=== PATIENT | male | born 1965 | race Caucasian/White ===

== ENCOUNTER 2019-03-19 22:54 | Emergency (ER) | payer OTHER ==
--- OUTSIDE RECORDS SUMMARY | 2019-03-19 22:55 | XMS REPORT | Clinical Summary ---
:1965 Author Organization [facility] Address [address] [place] [address] Care Team Providers Name Role Phone Asked, No Pcp Primary Care Provider Unavailable Allergies Active Allergy Reactions Severity Noted Date Comments Penicillins Rash Low 08/10/2017 Medications Medication Sig Dispensed Refills Start Date End Date Status diphenhydrAMINE Take 25 mg by 0 Active (BENADRYL) 25 mg tablet mouth nightly as needed for sleep. Active Problems Not on file Social History Tobacco Use Types Packs/Day Years Used Date Never Smoker Smokeless Tobacco: Never Used Alcohol Use Drinks/Week oz/Week Comments No Sex Assigned at Date Recorded Not on file Job Start Date Occupation Industry Not on file Not on file Not on file Travel History Travel Start Travel End No recent travel history available. Last Filed Vital Signs Not on file Plan of Treatment Health Maintenance Due Date Last Done Comments COLONOSCOPY SCREENING 2014 SHINGLES VACCINES (#1) 2014 INFLUENZA VACCINE 03/09/2019 Results Not on fileafter 03/18/2018 (Work) Advance Directives Patient has advance care planning documents on file. For more information, please contact:[address] [address]
[2019-03-20 00:08] LABS: Absolute Lymphocytes (CBC) 1.3 K/uL (0.7-4.9); Basophils % 0.9 % (0-1.3); Hematocrit 42.7 % (39.6-49.0); Lymphocytes % 20.7 % (15.3-44.8); RBC Red Blood Cell Count 4.83 M/uL (4.33-5.43)
[2019-03-20 00:11] LABS: Protime INR 1.03
[2019-03-20 00:25] LABS: ALT/SGPT 29 U/L (12-78); AST/SGOT 22 U/L (15-37); Alkaline Phosphatase 82 U/L (45-117); BUN Blood Urea Nitrogen 16 mg/dL (7-18); Bicarbonate 27 mmol/L (21-32); Bilirubin Direct < 0.1 mg/dL (0-0.2); Bilirubin Total 0.3 mg/dL (0.2-1.0); Glucose Level 101 mg/dL (74-106); Magnesium 2.1 mg/dL (1.8-2.4); NT PRO-BNP 26 pg/mL (<125); Potassium 3.7 mmol/L (3.5-5.1); Protein, Total 6.9 g/dL (6.4-8.2); Sodium Level 144 mmol/L (136-145); Troponin (Emerg Dept Use Only) < 0.02 ng/mL (0.0-0.045)
[2019-03-20] MEDS ORDERED: MORPHINE 4 MG/ML SYR ONE (00:25)
[2019-03-20] MEDS ORDERED: ONDANSETRON 4 MG/2 ML VIAL ONE (00:25)
--- NOTE | 2019-03-20 01:35 | EDPHYS ---
Physician Documentation [facility] Name: Radha Philip Age: 53 yrs Sex: Male : 1965 Arrival Date: 03/19/2019 Time: 22:58 Bed 27 Private MD: ED Physician Aydin Marie HPI: 03/19 23:48 This 53 yrs old Male presents to ER via Ambulatory with complaints of Right pm1 Arm Pain, High Blood Pressure. 23:48 The patient or guardian complains of pain, right arm and hypertension. Context: The pm1 problem was sustained at home, resulted from unknown cause. Onset: The symptoms/episode began/occurred this morning. Treatment prior to arrival includes: no previous treatment. Modifying factors: The symptoms are alleviated by nothing. the symptoms are aggravated by nothing. Associated signs and symptoms: Pertinent negatives: decreased range of motion, deformity, fever, numbness, swelling, tingling. Severity of symptoms: in the emergency department the symptoms are unchanged. The patient has not experienced similar symptoms in the past. The patient has been recently seen by a physician: the patient's primary care provider, Seen by PCP last week and started on blood pressure medications, lisinopril 10mg PO daily. Patient took his first dose of blood pressure medication today. Patient presenting here today with complaint of right arm pain that started this AM with elevated blood pressure. Historical: - Allergies: 23:15 PENICILLINS; cc3 - Home Meds: 23:15 escitalopram oxalate 10 mg oral tab 1 tab once daily [Active]; lisinopril 10 mg Oral cc3 tab 1 tab once daily [Active]; quetiapine 100 mg oral tab [Active]; - PMHx: 23:15 Hypertension; Depression; PTSD; cc3 - PSHx: 23:15 rigth ACL replacements; metal to left ankle; cervical fusion; Vasectomy; cc3 - Immunization history:: Adult Immunizations up to date. - Social history:: Smoking status: Patient/guardian denies using tobacco, but has a distant history of tobacco abuse, Patient uses chew nicotine. - Ebola Screening: : No symptoms or risks identified at this time. ROS: 23:48 Constitutional: Negative for fever, chills, and weight loss, Eyes: Negative for injury, pm1 pain, redness, and discharge, ENT: Negative for injury, pain, and discharge, Neck: Negative for injury, pain, and swelling, Cardiovascular: Negative for chest pain, palpitations, and edema, Respiratory: Negative for shortness of breath, cough, wheezing, and pleuritic chest pain, Abdomen/GI: Negative for abdominal pain, nausea, vomiting, diarrhea, and constipation, Back: Negative for injury and pain, : Negative for injury, bleeding, discharge, and swelling. 23:48 Skin: Negative for injury, rash, and discoloration, Neuro: Negative for headache, weakness, numbness, tingling, and seizure. 23:48 MS/extremity: Positive for pain, of the right arm, Negative for decreased range of motion, deformity. 23:48 Psych: Positive for anxiety. Exam: 23:48 Constitutional: This is a well developed, well nourished patient who is awake, alert, pm1 and in no acute distress. Head/Face: Normocephalic, atraumatic. Eyes: Pupils equal round and reactive to light, extra-ocular motions intact. Lids and lashes normal. Conjunctiva and sclera are non-icteric and not injected. Cornea within normal limits. Periorbital areas with no swelling, redness, or edema. ENT: Nares patent. No nasal discharge, no septal abnormalities noted. Tympanic membranes are normal and external auditory canals are clear. Oropharynx with no redness, swelling, or masses, exudates, or evidence of obstruction, uvula midline. Mucous membranes moist. Neck: Trachea midline, no thyromegaly or masses palpated, and no cervical lymphadenopathy. Supple, full range of motion without nuchal rigidity, or vertebral point tenderness. No Meningismus. Chest/axilla: Normal chest wall appearance and motion. Nontender with no deformity. No lesions are appreciated. Cardiovascular: Regular rate and rhythm with a normal S1 and S2. No gallops, murmurs, or rubs. Normal PMI, no JVD. No pulse deficits. Respiratory: Lungs have equal breath sounds bilaterally, clear to auscultation and percussion. No rales, rhonchi or wheezes noted. No increased work of breathing, no retractions or nasal flaring. Abdomen/GI: Soft, non-tender, with normal bowel sounds. No distension or tympany. No guarding or rebound. No evidence of tenderness throughout. Back: No spinal tenderness. No costovertebral tenderness. Full range of motion. Skin: Warm, dry with normal turgor. Normal color with no rashes, no lesions, and no evidence of cellulitis. MS/ Extremity: Pulses equal, no cyanosis. Neurovascular intact. Full, normal range of motion. 23:48 Neuro: Orientation: is normal, Motor: is normal, Sensation: is normal, no obvious gross deficits, Gait: is steady, at a normal pace, without difficulty. 23:48 Psych: Behavior/mood is pleasant, cooperative, anxious, Affect is animated. Vital Signs: 23:15 BP 174 / 109; Pulse 72; Resp 18 S; Temp 99.2(O); Pulse Ox 96% on R/A; Weight 76.66 kg cc3 (R); Height 5 ft. 9 in. (175.26 cm) (R); Pain 7/10; 23:29 BP 160 / 92; Pulse 73; Resp 17; Pulse Ox 96% on R/A; 3 03/20 00:16 BP 125 / 62; Pulse 62; Resp 16 S; Pulse Ox 97% on R/A; cc3 00:30 BP 150 / 88; Pulse 64; Resp 16 S; Pulse Ox 96% on R/A; cc3 01:00 BP 141 / 81 RA; Pulse 56; Resp 16 S; Pulse Ox 96% on R/A; cc3 01:15 BP 125 / 81 LA; Pulse 56; Resp 17 S; Pulse Ox 97% on R/A; cc3 03/19 23:15 Body Mass Index 24.96 (76.66 kg, 175.26 cm) [facility] MDM: 03/19 23:21 Patient medically screened. pm1 03/20 01:30 ED course: bilateral blood pressure readings 148/111 right arm and 148/111 left arm. pm1 01:32 Data reviewed: vital signs. Data interpreted: Pulse oximetry: on room air is 96 %. pm1 Interpretation: normal. Counseling: I had a detailed discussion with the patient and/or guardian regarding: the historical points, exam findings, and any diagnostic results supporting the discharge/admit diagnosis, lab results, radiology results, the need for outpatient follow up, to return to the emergency department if symptoms worsen or persist or if there are any questions or concerns that arise at home. 08/11 23:21 Order name: Basic Metabolic Panel; Complete Time: 01:13 pm03/19 23:21 Order name: CBC with Diff; Complete Time: 00:26 pm1 03/19 23:21 Order name: LFT's; Complete Time: 01:13 pm03/19 23:21 Order name: Magnesium; Complete Time: 01:13 pm1 03/19 23:21 Order name: NT PRO-BNP; Complete Time: 01:13 pm03/19 23:21 Order name: PT-INR 03/19 23:21 Order name: Troponin (emerg Dept Use Only); Complete Time: 01:13 pm1 03/19 23:21 Order name: XRAY Chest (1 view) pm03/19 23:21 Order name: EKG; Complete Time: 23:23 pm03/19 23:21 Order name: Cardiac monitoring; Complete Time: 23:41 pm03/19 23:21 Order name: EKG - Nurse/Tech; Complete Time: 23:41 pm03/19 23:21 Order name: IV Saline Lock; Complete Time: 00:18 pm03/19 23:21 Order name: Labs collected and sent; Complete Time: 00:18 pm1 03/19 23:21 Order name: O2 Per Protocol; Complete Time: 23:41 pm03/19 23:21 Order name: O2 Sat Monitoring; Complete Time: 23:41 pm1 Administered Medications: 00:25 Drug: morphine 4 mg {Note: RASS 0.} Route: IVP; Site: right antecubital; cc3 01:00 Follow up: Response: No adverse reaction; Pain is decreased; RASS: Alert and Calm (0) cc3 00:30 Drug: Zofran 4 mg Route: IVP; Site: right antecubital; cc3 01:00 Follow up: Response: No adverse reaction; Nausea is decreased cc3 Disposition: 03/20/19 01:34 Discharged to Home. Impression: Essential (primary) hypertension. - Condition is Stable. - Discharge Instructions: Hypertension, How to Take Your Blood Pressure, [id number], DASH Eating Plan, Managing Your Hypertension. - Medication Reconciliation Form, Thank You Letter, Antibiotic Education, Prescription Opioid Use form. - Follow up: Emergency Department; When: As needed; Reason: Worsening of condition. Follow up: Private Physician; When: 2 - 3 days; Reason: Recheck today's complaints, Continuance of care, Re-evaluation by your physician. - Problem is new. - Symptoms have improved. Addendum: 03/22/2019 19:09 Co-signature as Attending Physician, Aydin Marie MD. g s Signatures: Dispatcher [employer] EDMS Usman Estrada, JACQUARD CARD LACER JACQUARD CARD LACER pm1 Aydin Marie MD MD gs Cordel, Charlene cc3 Corrections: (The following items were deleted from the chart) 03/20 02:00 01:34 03/20/2019 01:34 Discharged to Home. Impression: Essential (primary) cc3 hypertension. Condition is Stable. Forms are Medication Reconciliation Form, Thank You Letter, Antibiotic Education, Prescription Opioid Use. Follow up: Emergency Department; When: As needed; Reason: Worsening of condition. Follow up: Private Physician; When: 2 - 3 days; Reason: Recheck today's complaints, Continuance of care, Re-evaluation by your physician. Problem is new. Symptoms have improved. pm1
--- NOTE | 2019-03-20 01:35 | ER ---
Nurse's Notes [facility] Name: Radha Philip Age: 53 yrs Sex: Male : 1965 Arrival Date: 03/19/2019 Time: 22:58 Bed 27 Private MD: Diagnosis: Essential (primary) hypertension Presentation: 03/19 23:15 Presenting complaint: Patient states: Nontraumatic right arm pain since yesterday but cc3 worse today and he has high blood pressure readings at home. Transition of care: patient was not received from another setting of care. Onset of symptoms was March 18, 2019. Risk Assessment: Do you want to hurt yourself or someone else? Patient reports no desire to harm self or others. Initial Sepsis Screen: Does the patient meet any 2 criteria? No. Patient's initial sepsis screen is negative. Does the patient have a suspected source of infection? No. Patient's initial sepsis screen is negative. Care prior to arrival: None. 23:15 Method Of Arrival: Ambulatory cc3 23:15 Acuity: RAKAN 3 cc3 Triage Assessment: 23:15 General: Appears in no apparent distress. uncomfortable, Behavior is calm, cooperative, cc3 appropriate for age. Pain: Complains of pain in right arm Pain does not radiate. Quality of pain is described as aching. EENT: No signs and/or symptoms were reported regarding the EENT system. Neuro: Level of Consciousness is awake, alert, obeys commands, Oriented to person, place, time, situation, Appropriate for age. Cardiovascular: Denies chest pain, Capillary refill < 3 seconds Patient's skin is warm and dry. Respiratory: Airway is patent Respiratory effort is even, unlabored, Respiratory pattern is regular, symmetrical. GI: Abdomen is round non-distended. : No signs and/or symptoms were reported regarding the genitourinary system. Derm: Skin is intact, is healthy with good turgor, Skin is pink, warm \T\ dry. normal. Musculoskeletal: Circulation, motion, and sensation intact. Range of motion: intact in all extremities. Historical: - Allergies: 23:15 PENICILLINS; cc3 - Home Meds: 23:15 escitalopram oxalate 10 mg oral tab 1 tab once daily [Active]; lisinopril 10 mg Oral cc3 tab 1 tab once daily [Active]; quetiapine 100 mg oral tab [Active]; - PMHx: 23:15 Hypertension; Depression; PTSD; cc3 - PSHx: 23:15 rigth ACL replacements; metal to left ankle; cervical fusion; Vasectomy; cc3 - Immunization history:: Adult Immunizations up to date. - Social history:: Smoking status: Patient/guardian denies using tobacco, but has a distant history of tobacco abuse, Patient uses chew nicotine. - Ebola Screening: : No symptoms or risks identified at this time. Screenin:15 Abuse screen: Denies threats or abuse. Denies injuries from another. Nutritional cc3 screening: No deficits noted. Tuberculosis screening: No symptoms or risk factors identified. Fall Risk Ambulatory Aid- None/Bed Rest/Nurse Assist (0 pts). Gait- Normal/Bed Rest/Wheelchair (0 pts) Mental Status- Oriented to own ability (0 pts). Assessment: 23:15 General: see triage assessment. cc3 03/20 00:20 Reassessment: Patient appears in no apparent distress at this time. Patient and/or cc3 family updated on plan of care and expected duration. Pain level reassessed. Patient is alert, oriented x 3, equal unlabored respirations, skin warm/dry/pink. 01:45 Reassessment: Patient appears in no apparent distress at this time. Patient and/or cc3 family updated on plan of care and expected duration. Pain level reassessed. Patient is alert, oriented x 3, equal unlabored respirations, skin warm/dry/pink. MONIQUE Estrada discharged the patient home, no prescription given. IV cannula removed and patient left ER vitally stable and ambulatory. No valuables left in the patient's room. Patient denies pain at this time. Patient states feeling better. Patient states symptoms have improved. Vital Signs: 03/19 23:15 BP 174 / 109; Pulse 72; Resp 18 S; Temp 99.2(O); Pulse Ox 96% on R/A; Weight 76.66 kg cc3 (R); Height 5 ft. 9 in. (175.26 cm) (R); Pain 7/10; 23:29 BP 160 / 92; Pulse 73; Resp 17; Pulse Ox 96% on R/A; cc3 03/20 00:16 BP 125 / 62; Pulse 62; Resp 16 S; Pulse Ox 97% on R/A; cc3 00:30 BP 150 / 88; Pulse 64; Resp 16 S; Pulse Ox 96% on R/A; cc3 01:00 BP 141 / 81 RA; Pulse 56; Resp 16 S; Pulse Ox 96% on R/A; cc3 01:15 BP 125 / 81 LA; Pulse 56; Resp 17 S; Pulse Ox 97% on R/A; cc3 03/19 23:15 Body Mass Index 24.96 (76.66 kg, 175.26 cm) cc3 ED Course: 03/19 22:58 Patient arrived in ED. ds1 23:13 Usman Estrada NP is PHCP. pm1 23:13 Aydin Marie MD is Attending Physician. pm1 23:15 Arm band placed on right wrist. Patient notified of wait time. EKG completed in triage. cc3 Results shown to MD. 23:15 Patient has correct armband on for positive identification. Placed in gown. Bed in low cc3 position. Call light in reach. Side rails up X 1. nurse monitoring on. Pulse ox on. NIBP on. 23:17 Deborah Puri is Primary Nurse. cc3 23:34 Triage completed. cc3 23:40 XRAY Chest (1 view) In Process Unspecified. EDMS 23:50 Inserted saline lock: 20 gauge in right antecubital area, using aseptic technique. cc3 Blood collected. 08 01:45 No provider procedures requiring assistance completed. IV discontinued, intact, cc3 bleeding controlled, No redness/swelling at site. Pressure dressing applied. Administered Medications: 00:25 Drug: morphine 4 mg {Note: RASS 0.} Route: IVP; Site: right antecubital; cc3 01:00 Follow up: Response: No adverse reaction; Pain is decreased; RASS: Alert and Calm (0) cc3 00:30 Drug: Zofran 4 mg Route: IVP; Site: right antecubital; cc3 01:00 Follow up: Response: No adverse reaction; Nausea is decreased cc3 Outcome: 01:34 Discharge ordered by . pm1 01:45 Discharged to home ambulatory. cc3 01:45 Condition: stable 01:45 Discharge instructions given to patient, Instructed on discharge instructions, follow up and referral plans. Demonstrated understanding of instructions, follow-up care. 02:00 Patient left the ED. cc3 Signatures: Dispatcher [employer] EDMS Carmelita Mir ds1 Usman Estrada, COSMETOLOGY PROFESSOR COSMETOLOGY PROFESSOR pm1 Deborah Puri cc3 Corrections: (The following items were deleted from the chart) 03:26 01:15 BP 125 / 81; Pulse 56bpm; Resp 17bpm; Spontaneous; Pulse Ox 97% RA; cc3 cc3
--- NOTE | 2019-03-20 07:36 | EKG ---
Test Date: 2019-03-19 Test Time: 23:12:20 [employer] Steward/Stewardess: AG3 MEASUREMENT RESULTS: Intervals: Rate: 71 CA: 130 QRSD: 92 QT: 408 QTc: 443 [place]: P: 68 CA: 130 QRS: 65 T: 60 INTERPRETIVE STATEMENTS: Normal sinus rhythm Normal ECG Compared to ECG 11/05/2004 12:32:00 Sinus bradycardia no longer present Right-axis deviation no longer present Electronically Signed On 03-20-19 07:35:27 CDT by Milad Clarke
--- NOTE | 2019-03-20 08:14 | RAD REPORT ---
EXAM DESCRIPTION: RAD - Chest Single View - 03/19/2019 11:40 pm CLINICAL HISTORY: High blood pressure, right arm pain Chest pain. COMPARISON: No comparisons FINDINGS: Portable technique limits examination quality. The lungs are grossly clear. The heart is normal in size. No displaced fractures.Cervical spine hardw are is present. IMPRESSION: No acute intrathoracic process suspected.
== END 2019-03-20 02:00 | disposition home or self-care (01) ==
LOC: ER 22:54
DX: I10 Essential (primary) hypertension (principal); F32.9 Major depressive disorder, single episode, unspecified; Z88.0 Allergy status to penicillin
CPT/HCPCS: 93005; 85025; 80048; 36415; 83735; 85610; 80076; 84484; 83880; 71045; 96375; 96374; 99284; J2405